=== PATIENT | male | born 1990 | race Caucasian/White ===

== ENCOUNTER 2017-08-05 22:31 | Emergency (ER) | payer BC ==
[2017-08-05 22:53] VITALS: BP 110/70
[2017-08-05] MEDS ORDERED: Ketorolac 30 MG/ML SDV ONE (23:57)
[2017-08-06 04:27] LABS: CHLORIDE,CL 105 mmol/L (98-110); SODIUM,NA 139 mmol/L (136-146)
[2017-08-06] MEDS ORDERED: Sodium Chloride 0.9% 1,000 ML IV ONE (05:05)
== END 2017-08-06 01:24 | disposition home or self-care (01) ==
LOC: MW.ED 22:31
DX: N23 Unspecified renal colic (principal)
CPT/HCPCS: 36415; 80053; 81001; 83690; 85025; 96361; 96374; 99284; J1885; J7040; 99282